=== PATIENT | female | born 1955 | race Caucasian/White ===

== ENCOUNTER 2024-04-04 13:30 | Outpatient (CLI) | payer MEDICARE, SELFPAY ==
--- NOTE | 2024-04-04 13:45 | MR_ITS ---
WS: [id number] MRI CERVICAL SPINE NONCONTRAST TECHNIQUE: Sagittal T1, T2 and STIR imaging. Axial T2, gradient, and fiesta imaging. CLINICAL INFORMATION: M54.12 - Radiculopathy, cervical region COMPARISON: None. FINDINGS: Straightening of the normal cervical lordosis. Mild spondylitic changes. Disc bulging worse at C4-C5 and C6-C7. C2-C3: Mild facet arthropathy. Spinal canal and foramina are patent. C3-C4: Mild disc osteophytic ridging. Moderate facet arthropathy. Spinal canal is patent. Foramen are patent. C4-C5: Mild disc osteophyte complex with endplate ridging. Moderate facet arthropathy. Foramen are pa tent. C5-C6: Disc osteophyte complex with endplate ridging. Mild LEFT and no significant RIGHT foraminal na rrowing. Moderate facet arthropathy. Mild central canal stenosis. C6-C7: Disc osteophyte complex with endplate ridging. Slight contact of the cervical cord. Mild LEFT and no significant RIGHT foraminal narrowing. Moderate facet arthropathy. C7-T1: Mild bilateral bony foraminal narrowing. Disc osteophytic ridging. Spinal canal is patent. Visualized brain stem structures: Normal. Prevertebral soft tissues: Normal. MR/MR cervical spin wo con* [id number] IMPRESSION: 1. Straightening of the normal cervical lordosis. 2. Mild central canal stenosis C5-C6 and C6-C7 with slight contact of the cerv ical cord. 3. Mild bony foraminal narrowing worse at LEFT C5-C6, LEFT C6-C7, and LEFT C7- T1 4. Moderate facet arthropathy C3-C4 C4-C5 C5-C6 and C6-C7.
== END 2024-04-04 13:31 | disposition home or self-care (01) ==
LOC: RAD 13:33
PROVIDERS: Family Provider Nurse Practitioner; PCP Nurse Practitioner Family; Visit Provider Nurse Practitioner Family
DX: M54.12 Radiculopathy, cervical region (principal); M47.892 Other spondylosis, cervical region; M25.78 Osteophyte, vertebrae
CPT/HCPCS: 72141

== ENCOUNTER 2024-04-17 06:00 | Outpatient (RCR) | payer MEDICARE, SELFPAY | END 2024-05-16 23:59 | disposition home or self-care (01) | LOC: WPT 06:00 | PROVIDERS: Visit Provider Orthopaedic Surgery | DX: M54.2 Cervicalgia (principal); G89.29 Other chronic pain | CPT/HCPCS: 97110; 97112; 97162; 97530 ==

== ENCOUNTER → 2024-04-21 15:11 | Outpatient (BNVA) | payer MEDICARE, SELFPAY | PROVIDERS: Family Provider Nurse Practitioner; PCP Family Medicine; Visit Provider Orthopaedic Surgery | DX: M54.12 Radiculopathy, cervical region (principal); M48.02 Spinal stenosis, cervical region | CPT/HCPCS: 72050; 99214 ==

== ENCOUNTER 2024-05-17 06:00 | Outpatient (RCR) | payer MEDICARE, SELFPAY | END 2024-06-16 23:59 | disposition home or self-care (01) | LOC: WPT 06:00 | PROVIDERS: Visit Provider Orthopaedic Surgery | DX: M54.2 Cervicalgia (principal); G89.29 Other chronic pain | CPT/HCPCS: 97110; 97112; 97140; 97530 ==

== ENCOUNTER 2024-06-17 06:00 | Outpatient (RCR) | payer MEDICARE, SELFPAY | END 2024-07-16 23:59 | disposition home or self-care (01) | LOC: WPT 06:00 | PROVIDERS: Visit Provider Orthopaedic Surgery | DX: M54.2 Cervicalgia (principal); G89.29 Other chronic pain | CPT/HCPCS: 97110; 97112; 97140; 97530 ==